=== PATIENT | female | born 2005 | race Caucasian/White ===

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

== ENCOUNTER → 2024-01-23 | Outpatient (CLI) | payer OTHER | END | disposition home or self-care (01) | LOC: LABPRL 16:46 | PROVIDERS: ATTEND Pediatrics | DX: R07.0 Pain in throat (principal) | CPT/HCPCS: 87070 ==